=== PATIENT | female | born 1955 | race American Indian/Alaskan Native ===

== ENCOUNTER 2017-09-27 17:09 | Emergency (ER) | payer OTHER ==
[~2017-09-27] VITALS: Ht 157.5 cm; Wt 54.9 kg
[2017-09-27] MEDS ORDERED: BACTRIM DS TAB1 EACH PO (18:46)
[2017-09-27] MEDS ORDERED: ONDANSETRON ODT8 MG PO (18:46)
== END 2017-09-27 19:08 | disposition home or self-care (01) ==
LOC: ED 17:09
DX: N39.0 Urinary tract infection, site not specified (principal); F17.200 Nicotine dependence, unspecified, uncomplicated; Z88.0 Allergy status to penicillin
CPT/HCPCS: 80053; 81001; 82150; 83690; 85025; 87077; 87088; 87186; 96374; 96375; 99283; J2405; J7030

== ENCOUNTER 2017-12-01 09:39 | Observation (INO) | payer OTHER ==
[~2017-12-01] VITALS: Ht 154.9 cm; Wt 55.1 kg
[~2017-12-01 09:39] MED LIST: BACTRIM DS TAB1 EACH PO; ONDANSETRON ODT8 MG PO
[2017-12-01] MEDS ORDERED: ASPIRIN325 MG PO (12:03)
--- NOTE | 2017-12-01 12:30 | NUR ---
PT RECEIVED FROM ED. ADMISSION INTAKE COMPLETED. PT RATING PAIN 7/10, REQUESTING PAIN MEDICATION, NO MEDICATION AVAILABLE, DR. HAYES CALLED, TELEPHONE ORDER FOR DILAUDID 0.3-1.5 MG IV Q2H PRN FOR PAIN, ZOFRAN 8 MG IV Q6H PRN FOR NAUSEA, AND PROMETHAZINE 12.5 MG IV Q6H PRN. IV FLUIDS INFUSING LR AT 125 ML/HR. PT ON ROOM AIR, LUNG SOUNDS CLEAR, DENIES SOB. BOWEL TONES ACTIVE, DENIES NAUSEA. CMS INATCT, WITHOUT EDEMA. SKIN GROSSLY INTACT. DISCUSSED PLAN OF CARE. PT DENIES OTHER NEEDS AT THIS TIME.
--- NOTE | 2017-12-01 16:38 | NUR ---
PT ASSISTED TO BATHROOM AND BACK TO BED. SBA. PT VOIDING WITHOUT DIFFICULTY.
--- NOTE | 2017-12-01 18:04 | NUR ---
PT RECEIVED FROM ED FOR CHOLECYSTITIS. PT ON ROOM AIR, LUNG SOUNDS CLEAR. D5LR AT 100 ML, IV FLAGYL AND LEVAQUIN. PT WITH PAIN TO RUQ, IV DILAUDID GIVEN X1. SBA TO BATHROOM, VOIDING CONCENTRATED URINE. CLEAR LIQUID DIET, NPO AT MIDNIGHT FOR SURGERY TOMORROW.
--- NOTE | 2017-12-01 18:33 | NUR ---
AROUND 175 THE PATIENT ASKED FOR A WARM BLANKET GOT IT FOR HER ALSO HER GUEST ASKED FOR A CUP OF COFFEE.
--- NOTE | 2017-12-01 20:10 | NUR ---
recieved bedside report from day shift rn. pt in bed with at bedside. respirations are equal and nonlabored. pt reports pain of 6/10 in the RUQ. d5lr infusing. call light within reach. prn pain medication given. no other needs at this time.
--- NOTE | 2017-12-01 20:24 | NUR ---
HELPED PT TO THE BATHROOM AND BACK TO BED. BEDSIDE TABLE AND CALL LIGHT WITHIN REACH.
--- NOTE | 2017-12-01 21:04 | NUR ---
VITALS AND I&OS DONE AND CHARTED. FRESH ICE WATER GIVEN. BEDSIDE TABLE AND CALL LIGHT WITHIN REACH. PT NEEDS NOTHING ELSE AT THIS TIME.
--- NOTE | 2017-12-01 22:23 | EKG ---
[facility] [address] [facility] [place] [address] Signed Normal sinus rhythm Prolonged QT Abnormal ECG No previous ECGs available Confirmed by CHARBEL HENDRICKS MD ([id number]) on 12/01/2017 10:23:37 PM Electronically Signed By: CHARBEL HENDRICKS MD 12/01/17 2223 PATIENT NAME: JERMAINE LANZA Electrocardiogram DATE OF : 51 PHYSICIAN: CHARBEL HENDRICKS MD REPORT #: [id number] REPORT IS CONFIDENTIAL AND NOT TO BE RELEASED WITHOUT AUTHORIZATION
--- NOTE | 2017-12-02 | NUR ---
PT DIET WAS CHANGED TO NPO.
--- NOTE | 2017-12-02 01:20 | NUR ---
PT REPORTED PAIN 7/10 IN ABDOMEN. 1MG DILAUDID ADMINISTERED. CERTIFIED EXECUTIVE CHEF REPORTED TEMP ON 99.7 ENCOURAGED IS USE. RECHECKED TEMP WAS 98.5. PT RESTING IN BED NOW WITH EYES CLOSED. ASSESSMENT COMPLETED. PT HAS CRACKLES IN BASES OF LUNGS. HEART SOUNDS NORMAL. CMS INTACT. BOWEL TONES ACTIVE. CALL LIGHT WITHIN REACH. PT IS STILL NPO AT THIS TIME.
--- NOTE | 2017-12-02 02:59 | NUR ---
HELPED PT TO THE BATHROOM AND BACK TO BED. HOOKED UP HER SCD'S BEDSIDE TABLE AND CALL LIGHT WITHIN REACH. PT NEEDS NOTHING ELSE AT THIS TIME.
--- NOTE | 2017-12-02 06:07 | NUR ---
PT SLEPT THROUGHOUT THE NIGHT. 1MG DILAUDID GIVEN AT 0115. LUNGS DIM IN BASES. D5LR INFUSING. LR WITH STRAIGHT TUBING HANGING FOR SURGERY. FLAGYL. SBA. NPO SINCE MIDNIGHT. CONCENT IN CHART, H&P IN CHART. RAC IV FLUSHES WELL. SCD'S IN PLACE.
--- NOTE | 2017-12-02 06:14 | NUR ---
DENG ALEXIS COMPLETED. PT REPORTS TOLERABLE PAIN AT THIS TIME. CONSENT SIGNED. CALL LIGHT WITHIN REACH. WARM BLANMET PROVIDED FOR COMFORT.
--- NOTE | 2017-12-02 07:30 | NUR ---
REPORT RECEIVED THIS AM FROM JULIO MACHUCA. PATIENT IS RESTING IN BED WITH EYES CLOSED. PATIENT DENIES ANY QUESTIONS OR CONCERNS.
--- NOTE | 2017-12-02 08:18 | NUR ---
PATIENT READY FOR SURGERY, STRAIT TUBING HUNG AND ANTIBIOTIC HUNG.
--- NOTE | 2017-12-02 10:44 | NUR ---
PT IS STILL IN SURGERY WILL DO VITALS UPON RETURN.
--- NOTE | 2017-12-02 11:30 | NUR ---
PATIENT BACK FROM SURGERY AT THIS TIME ON RA, PULSE OX PLACED ON THE PATIENT AT THIS TIME. DRESSINGS TO ABDOMEN ARE CDI WITH GAUZE AND SILK TAPE. PATIENT DENIES ANY PAIN OR SOB AT THIS TIME. SHE WAS ABLE TO MOVE HERSELF FROM THE STRETCHER TO THE BED HERSELF WITHOUT ANY TROUBLE. PATIENT WATER FILLED UP FOR HER.
--- NOTE | 2017-12-02 11:35 | NUR ---
12/02/17 1135 HERNANDEZ,SHALA Osborne 1052: O2 MASK REMOVED. PATIENT ON ROOM AIR. 1127: PATIENT TRANSFERRED BACK TO ROOM 119. REPORT GIVEN TO MS SVEN.
--- NOTE | 2017-12-02 12:30 | NUR ---
PATIENT IS FEELING LIKE HER THROAT IS CLOSING AND SHE CAN'T BREATH. VITALS TAKEN, ALL WNL O2 SATURATIONS ON RA IS 98%. PATIENT HAD A SMALL CLEAR EMESIS AND SHE STATED THAT SHE FELT BETTER AND HAD NO TROUBLE WITH SWALLOWING OR TROUBLE WITH SHORTNESS OF BREATH. PATIENT IS ALERT AND ORIENTED AT THIS TIME.
--- NOTE | 2017-12-02 13:30 | NUR ---
ABDOMINAL DRESSINGS ARE CDI WITH GAUZE AND MEPILEX. OLD SHADOWING NOTED ON THE DRESSING AT THIS TIME. PATIENT HAS NO C/O PAIN CURRENTLY AND REMAIN ON RA WITH O2 SAT AT 98%. PATIENT HAS NO FUTHER C/O NAUSEA OR SWELLING OF THE NECK.
--- NOTE | 2017-12-02 14:15 | NUR ---
VITALS TAKEN, PATIENT DOING WELL TOLERATING WATER AT THIS TIME, IV ABX HUNG AND RUNNING. DRESSINGS TO ABDOMEN ARE CDI WITH GAUZE AND SILK TAPE.
--- NOTE | 2017-12-02 15:09 | NUR ---
PATIENT MOVED UP IN BED, TURNED TO HER RIGHT SIDE. SHE HAS NO C/O NAUSEA OR PAIN AT THIS TIME.
--- NOTE | 2017-12-02 15:33 | NUR ---
PATIENT'S ABDOMINAL PAIN 12/31 PATIENT GIVEN AN ICE PACK AND 1MG OF IV DILAUDID AT THIS TIME
[2017-12-02] MEDS ORDERED: [UNRECOGNIZED DRUG - OTHER] PO (16:08)
--- NOTE | 2017-12-02 16:09 | NUR ---
MED REC COMPLETED
--- NOTE | 2017-12-02 17:40 | NUR ---
PATIENT DOING WELL SITTING UP IN BED ONLY ABLE TO TOLERATE A COUPLE BITES OF JELLO AT A TIME CURRENTLY. SHE REMAINS ON RA WITH NO SOB. NO C/O NAUSEA AT THIS TIME. DRESSINGS TO ABDOMEN X4 ARE CDI.
--- NOTE | 2017-12-02 17:55 | NUR ---
PATIENT WENT TO SURGERY THIS AM AT 0800 AND HAD HER GALLBLADDER REMOVED LAPRASCOPICALLY. SHE HAS 4 LAPSITES TO HER ABDOMEN THAT HAVE OLD DRAINAGE PRESENT. THE DRESSINGS ARE GAUZE WITH SILK TAPE OVER THE TOP. PATIENT HAS HAD MINIMAL PAIN AND ONLY RECIEVED PAIN MEDICATION ONCE 1MG OF DILAUDID IV. SHE HAS BEEN ON RA WITH NO C/O SOB. SHE GETS UP TO THE BATHROOM WITH 1 PERSON ASSIST TO VOID. SHE IS NOT TOLERATING CLEAR LIQUIDS AT THIS TIME AND HAS ONLY TAKEN A COUPLE BITES OF JELLO.
--- NOTE | 2017-12-02 18:31 | NUR ---
PT IS RESTING IN BED WITH CALL LIGHT IN REACH. PT DID NOT NEED ANYTHING AT THE MOMENT
--- NOTE | 2017-12-02 19:55 | NUR ---
had 100cc bile colored emesis, medictaed with zofran 8mg IV
--- NOTE | 2017-12-02 21:42 | NUR ---
NO FURTHER C/O FEELING NAUSEATED, IN BED, OPENS EYES EASILY
--- NOTE | 2017-12-02 22:03 | NUR ---
PATIENT CALLED STATING READY TO LAY DOWN FROM DANGLING BY THE BED. SCDS BACK ON. CALL LIGHT WITHIN REACH. WARM BLANKET GIVEN.
--- NOTE | 2017-12-03 | NUR ---
RESTING, EYES CLOSED, NO RESP DISTRESS, NO FURTHER C/O ABD PAIN. IN BED. SCDS IN PLACE, IVF INFUSING W/O PROBLEMS
--- NOTE | 2017-12-03 02:42 | NUR ---
MEDICATED WITH 1MG IV DIALAUDID 12/31 ABD PAIN, NO FURTHER C/O N/V
--- NOTE | 2017-12-03 04:24 | NUR ---
RESTING, EYES CLOSED, NO C/O PAIN, N/V OR PAIN. IVF INFUSING W/O PROBLEMS, ABD DRESSING CDI. SCDS IN PLACE
--- NOTE | 2017-12-03 06:09 | NUR ---
MEDICATED WITH ZOFRAM 8MG IV AT THIS TIME, C/O DRY HEAVING, WAS MEDICATED X1 EARLIER TOO WITH GOOD RESULTS. PT HAS 100CC BILE COLORED EMESIS EARLIER AT BEGINING OF SHIFT. HAS NET BEEN ABLE TO TOLERATED JELLO OR JUICES. TOLERATING VERY SMALL SIPS OF WATE, ICE CHIPS GIVEN AT THIS TIME, TOLERATING OK SO FAR. ABD DRESSING LAP SITES CDI. STATES PASSING GAS. NO BM. GETS UP TO BRP WITH ONE PERSON ASSIST, VOIDING QS. IVF INFUSING W/O PROBLEMS, NO C/O ADVERSE REACTION TO ABX. MEDICATED X1 WITH DILAUDID 1MG EARLIER PER ABD PAIN WITH GOOD PAIN RELIEF. CURRENTLY IN BED, EYES CLOSED, CONT PULSE OX DC'D, SATS 99% ROOM AIR. NO C/O SOB WITH EXERTION OR STATED
--- NOTE | 2017-12-03 06:47 | NUR ---
up to brp, voided dark yellow urine, QSm . Back to bed, tolerated well, one person assist, no c/o n/v or pain
--- NOTE | 2017-12-03 07:29 | OR ---
[facility] [address] [place], [place] [address] Signed DATE OF OPERATION: 12/02/2017 SURGEON: Sam Hayes MD PREOPERATIVE DIAGNOSIS: [id number] cholecystitis and cholelithiasis. POSTOPERATIVE DIAGNOSIS: Kgxgy-fj-jwraswz cholecystitis and cholelithiasis. PROCEDURE: Laparoscopic cholecystectomy with intraoperative cholangiogram (prolonged and difficult at 1 hour 25 minutes). ESTIMATED BLOOD LOSS: 200 mL. FINDINGS: The intraoperative cholangiogram was unremarkable. Nat had tremendous inflammation of the entire gallbladder and the triangle of Calot. The gallbladder wall was quite thickened. She had a 5 cm oval-shaped stone in the gallbladder along with a smaller 1.5 cm stone and the smaller 8 mm stone. The dissection was quite difficult. We had an extra nurse scrub in and we had to add another trocar with our fan retractor in order to hold the duodenum and fat down out of the way. The entire case took 1 hour and 25 minutes, which is well over 35 or 40 minutes longer than usual. In this way, the procedure was prolonged and difficult. INDICATIONS: Nat is a 62-year-old female, who was having right upper quadrant abdominal pain with nausea. She came to the emergency room for evaluation. Her white count was borderline at 9.6 with neutrophils 82. Her liver function tests were fine with a total bilirubin was up a little bit at 2.4. Amylase and lipase were fine. An ultrasound showed a 5 cm gallstone with a 7 mm thickened gallbladder wall and a positive Boss sign. Consequently, I was asked to admit her as a general surgeon on-call. She was admitted, hydrated and started on antibiotics and pain control. I had met with Nat and her family and reviewed the above findings. I have already removed the gallbladder from several of her own family members. We also reviewed laparoscopic versus open cholecystectomy. She understands there is risk including, but not limited to, bleeding, infection, scarring, change in contour of the skin, damage to bowel, damage to main bile duct, incisional hernias, and other unforeseen comorbidities. She had expressed Electronically Signed By: SAM HAYES MD 12/03/17 0729 PATIENT NAME: NAT LANZA OPERATIVE REPORT DATE OF : 51 REPORT #: [id number] PHYSICIAN: SAM HAYES MD PCP: ISABEL DAVALOS MD REPORT IS CONFIDENTIAL AND NOT TO BE RELEASED WITHOUT AUTHORIZATION [facility] [address] [place] [id number] Signed understanding and wished to proceed. PROCEDURE NOTE: Nat was taken into the operating room and placed in the supine position under general endotracheal tube anesthesia. She was given preoperative antibiotics along with subcutaneous heparin. She was then prepped and draped in the usual sterile fashion. All trocars were placed in usual positions under direct visualization of the camera without difficulty. The findings were as above. It took very slow meticulous dissection to free up the triangle of Calot along the cystic artery. Two clips have been placed on the cystic artery and it was divided. We introduced intraoperative cholangiocatheter into the cystic duct and thankfully that was unremarkable. The cystic duct stump was secured with a PDS Endoloop along with a clip to sean its location. We did introduce a second fan retractor along with a second nurse in order to help dissect out the inferior portion of the gallbladder. I then took very slow meticulous dissection along the gallbladder fossa in order to remove the gallbladder from the fossa. Nevertheless, that surface was fairly raw and therefore it oozed a bit. She probably lost about 200 mL of blood. After this, the gallbladder was placed into an EndoCatch bag. The right upper quadrant was irrigated and suctioned out until clear. We then used our laparoscopic suturing device to pass 0 Vicryl suture on either side of the fascia of the subxiphoid in the mid epigastric trocar sites to close them primarily. The gas was then allowed to escape and all the remaining trocars were removed. We had to double the fascial defect at the umbilicus in order to remove the gallbladder without large stone. We then used multiple interrupted [id number] and simple 0 Vicryl sutures to close the fascia just below the umbilicus. Local anesthetic was copiously injected into all trocar sites. Each trocar site was irrigated and suctioned out until clear. The skin and dermis of each trocar site were closed with interrupted 3-0 subcuticular Monocryl sutures. Dry gauze and tape were applied to all incisions. Nat was awakened from her anesthesia, extubated in the OR, and taken to recovery room in stable condition. Sam Hayes MD ALB/MODL /[id number] cc: Sam Hayes MD Electronically Signed By: SAM HAYES MD 12/03/17 0729 PATIENT NAME: NAT LANZA OPERATIVE REPORT DATE OF : 51 REPORT #: [id number] PHYSICIAN: SAM HAYES MD PCP: ISABEL DAVALOS MD REPORT IS CONFIDENTIAL AND NOT TO BE RELEASED WITHOUT AUTHORIZATION [facility] [address] [place], [place] [address] Signed Isabel Davalos MD Copies: SAM HAYES MD, REX MD ~ Electronically Signed By: SAM HAYES MD 12/03/17 0729 PATIENT NAME: NAT LANZA OPERATIVE REPORT DATE OF : 51 REPORT #: [id number] PHYSICIAN: SAM HAYES MD PCP: ISABEL DAVALOS MD REPORT IS CONFIDENTIAL AND NOT TO BE RELEASED WITHOUT AUTHORIZATION
--- NOTE | 2017-12-03 08:31 | NUR ---
pt reports nausea. assisted up to bathroom to void. will ambulate patient as she c/o gas pain.
--- NOTE | 2017-12-03 09:22 | NUR ---
PT UP IN LUNDY WALKING WITH KAREN HUBBARD. DENIES SOB/DIZZINESS/NAUSEA. APPEARS TO BE TOLERATING WELL.
--- NOTE | 2017-12-03 09:33 | NUR ---
pt ambulated halls with Calista JONES. up to bathroom with assistance. able to tolerate a few bites of applesauce.
--- NOTE | 2017-12-03 10:44 | NUR ---
GOT PATIENT A HOT PACK ALSO HER FAMILY TWO CUPS OF COFFEE THIS MORNING.
--- NOTE | 2017-12-03 13:11 | NUR ---
AMBUALTED PATIENT SHORT DISTANCE IN LUNDY. SBA. NORCO GIVEN AT 1230 FOR PAIN. VISITOR AT BEDSIDE.
--- NOTE | 2017-12-03 13:42 | NUR ---
DRESSINGS REMOVED ON ABDOMEN. STAB WOUND SIDES WELL APPROXIMATED AND HEALING WELL.
--- NOTE | 2017-12-03 18:36 | NUR ---
PATIENT AMBULATED HALLS X2 TODAY. LAP SITES X5 OPEN TO AIR, DRESSINGS REMOVED TODAY. NAUSEA WITH MEALS. POOR APPETITE. PHENERGAN GIVEN. RENAY X2. NAPHOS RIDER TODAY. D5LR @ 75. NO BM.
--- NOTE | 2017-12-03 19:57 | NUR ---
cOOP WITH ASSESSMENT, NO C/O PAIN OR N/V. tOLERATED 25% OF DINNER. WATCHING TV
--- NOTE | 2017-12-03 22:58 | NUR ---
medicated with 1 norco 5/10 abd pain
--- NOTE | 2017-12-03 23:40 | NUR ---
ASSISTED PATIENT TO THE BATHROOM AND BACK TO BED. SCDS BACK ON. CALL LIGHT WITHIN REACH. PATIENT STATED SHE IS CONSTIPATED. SVEN CASILLAS IS AWARE.
--- NOTE | 2017-12-03 23:50 | NUR ---
RESTING, EYES CLOSED, NO RESP DISTRESS, PAIN MED EFFECTIVE, NO FURTHER C/O ABD PAIN OR N/V. TOLERATING SIPS OF WATER AND JUICE. SCDS INPLACE, TURN SELF IN BED IVF INFUSING W/O PROBLEMS
--- NOTE | 2017-12-04 02:07 | NUR ---
RESTING PEACEFULLY, NO RESP DISTRESS. SCDS INPLACE, IVF-FLAGYL IV ABX INFUSING W/O PROBLEMS, NO FURTHER C/O PAIN OR N/V
--- NOTE | 2017-12-04 02:58 | NUR ---
PT CALLED TO USE BATHROOM. MIMINAL ASSISTANCE OUT OF BED, SBA AMB TO BATHROOM. VOIDED WITHOUT DIFFICULTY. ONCE IN BED, STATED "THAT WAS BETTER THIS TIME", "GETTING INTO BED" CALL LIGHT WITHIN REACH, NO OTHER NEEDS.
--- NOTE | 2017-12-04 05:23 | NUR ---
Mwsicated with 1 [place] c/o 12/31 abd pain. Up to brp, voided, back to bed, tolerating fluids well, no c/o b/v or dry heaving
--- NOTE | 2017-12-04 05:48 | NUR ---
pt has been able to tolerated apple sauce, and juices better, no c/o n/v or dry heaving this shift. No emesis. Continues to c/.o abd pain and has received 1 norco X2 doses with good pain control. Abd tender, 4 lap sites closed with dermabond, cdi. passing gas, no bm since 11/30. nurse initated orders started. Gets up to brp with one standby assist. Tolerating well. Currently in bed resting
--- NOTE | 2017-12-04 06:52 | NUR ---
DR HAYES NOTIFIED OF ABNORMAL LAB LEVELS OF PHOSPHOROUS 1.7, MAGNESIUM 1.4. DR WILL REVIEW LABS
--- NOTE | 2017-12-04 08:40 | NUR ---
PATIENT SITTING UP IN BED EATING BREAKFAST. SHAMPOO CAP ON PATIENT. PATIENT WILL CALL WHEN SHE'S FINISHED WITH BREAKFAST TO GET UP TO BATHROOM AND WASH UP THEN TO THE CHAIR. CALL BUTTON IN REACH. PATIENT RATES HER PAIN A 4 OUT OF 10. PATIENT STATES SHE CAN TOLARATE HER PAIN RIGHT NOW AND REFUSED ANYTHING FOR PAIN. NO OTHER NEEDS AT THIS TIME.
[2017-12-04] MEDS ORDERED: MIRALAX17 GM PO (09:05)
[2017-12-04] MEDS ORDERED: NORCO 5-325 TA1 EACH PO (09:05)
--- NOTE | 2017-12-04 09:36 | NUR ---
iv abx due. PHARMACY CONSULTED. PHARMACIST STATES TO STOP POTASSIUM PHOSPHATE AND GIVEN ABX, THEN RESTART POTASSIUM PHOSPHATE. MEDICATIONS GIVEN ORDERED. PT WORKING WITH STEAM TUNNEL FEEDER FOR MORNING CARE AND HAIR WASH. PAIN MEDICATION GIVEN TO ASSIST WITH AMBULATION. PT STATES SHE HAS NO ADDITIONAL REQUESTS OR COMPLAINTS AT THIS TIME. CALL LIGHT WITHIN REACH.
--- NOTE | 2017-12-04 10:24 | NUR ---
PATIENT UP TO BATHROOM AND HAD A SMALL FORMED BM. PATIENT BACK TO CHAIR WITH STAND BY ASSIST. PATIENT STATES THAT SHE FEELS BETTER THEN YESTERDAY. PATIENT'S HANDS AND FACE WASHED. SHAMPOO CAP USED. NO OTHER NEEDS AT THIS TIME. CALL BUTTON IN REACH. WARM BLANKET GIVEN.
--- NOTE | 2017-12-04 11:29 | NUR ---
FOCUSSED ASSESSMENT DUE. THIS RN TO BEDSIE. ASSESSMENT DONE. PT DENIES PAIN AND NAUSEA. PT DRIFTS OFF TO SLEEP WHILE THIS RN IS CHARTING, RR = 16BPM. CALL LIGHT WITHIN REACH. BED RAILS UP.
--- NOTE | 2017-12-04 12:33 | NUR ---
PT RESTING IN BED-ALERT, ORIENTTED AND SUPPORTED BY HER . SHE WAS PLEASANT, SEEMED COMFORTABLE WITH MY PRESENCE AND STATED SHE HOPES TO BE DC'D TODAY. PT MENTIONED RN HAD GONE OVER DC INSTRUCTIONS, PT REQUESTED PRAYER, WILL FOLLOW NEEDED
--- NOTE | 2017-12-04 13:48 | NUR ---
PT CALL LIGHT ON. PT REQUESTS PAIN MEDICATION AFTER HER WALK FOR 4/10 PAIN. GIVEN REQUESTS. PT BEGINS REPORTING NAUSEA. ZOFRAN GIVEN, FLUSHED BEFORE AND AFTER INFUSION OF ZOFRAN. K-PHOS RESTARTED. PT STATES SHE HAS NO ADDITIONAL REQUESTS OR COPMLAINTS. BED RAILS UP. CALL LIGHT WITHIN REACH.
--- NOTE | 2017-12-04 14:10 | NUR ---
PATIENT RESTING IN BED TALKING TO PHARMACIST [place]. THIS POWER CHECKER GAVE THE PATIENT COOL WASH CLOTH. PATIENTS HER PAIN A 3 OUT OF 10. PATIENT STATES THAT SHE FEELS BETTER AFTER HER RN GAVE HER MEDICATION. CALL BUTTON IN REACH NO OTHER NEEDS AT THIS TIME.
--- NOTE | 2017-12-04 17:10 | NUR ---
PT STATES SHE IS READY TO GO HOME. PT HAS CHANGED INTO HER OWN [facility]OT[facility]. PIV DC'D BY [employer] STUDENTS. DISCHARGE INSTRUCTIONS REVIWED WITH PT. PT VERBALIZES UNDERSTANDING OF INSTRUCTIONS AND STATES HER QUESTIONS HAVE ALL BEEN ANSWERED. PTS FAMILY ARRIVED TO PICK PT UP. VITALS TAKEN. PT WHEELED FROM UNIT BY [employer].
--- NOTE | 2017-12-04 19:20 | CONS ---
[facility] [address] [place], [place] [address] Signed DATE OF CONSULTATION: 12/01/2017 REFERRING PHYSICIAN: Enrrique Gross DO CHIEF COMPLAINT: Right upper quadrant abdominal pain. HISTORY OF PRESENT ILLNESS: Nat is a 62-year-old female who generally is pretty healthy and she woke up this morning and had right upper quadrant abdominal pain with nausea. She came to emergency room for evaluation. In the emergency room, she was tender in the right upper quadrant with an elevated total bilirubin. Ultrasound was performed, and it looks like there was a 5 cm stone in the gallbladder with 7 mm gallbladder wall thickening, and a positive Boss sign. Consequently, I was asked to admit her as a general surgeon on-call. In the meantime, she has received some Dilaudid and said she is feeling better. PAST MEDICAL HISTORY: Headaches and urinary tract infections. PAST SURGICAL HISTORY: . SOCIAL HISTORY: She smokes a little bit, but does not drink. She lives with her partner. She no longer drives. She has 3 children. Her daughter is Brittni Melissa at [phone][address] Dr. Isabel Davalos is the primary care provider. They prefer the [facility]. FAMILY HISTORY: She is not sure about her dad. Her mom had TB and then of some type of stomach infection. REVIEW OF SYSTEMS: Nat had 10 systems reviewed. She seems to be very healthy otherwise. ALLERGIES: Penicillin. MEDICATIONS: 1. Aspirin p.r.n. 2. Bactrim p.r.n. PHYSICAL EXAMINATION: Electronically Signed By: SAM HAYES MD 12/04/17 1920 PATIENT NAME: NAT LANZA CONSULTATION DATE OF : 51 REPORT #: [id number] PHYSICIAN: SAM HAYES MD PCP: ISABEL DAVALOS MD REPORT IS CONFIDENTIAL AND NOT TO BE RELEASED WITHOUT AUTHORIZATION [facility] [address] [place], [place] [address] Signed VITAL SIGNS: Her blood pressure is 147/65, heart rate 82, respiratory rate 16, temperature is 98.7. She is 5 foot 1 inch, 55 kilograms. GENERAL: Nat is a 62-year-old female, who was lying supine in her hospital bed. Her lifelong partner is in the room along with her daughter, Brittni. She does not appear systemically ill or toxic. LUNGS: Clear to auscultation bilaterally. HEART: Regular rate and rhythm. ABDOMEN: Soft and flat, but it is tender in the right upper quadrant. LABS: White blood cell count 9.6, hemoglobin 16, neutrophils 82, BUN 19, creatinine 1.0, total bilirubin is 2.4, AST 12, ALT 8, alkaline phosphatase 83, albumin 4.1, amylase normal at 41 and lipase 5. RADIOGRAPHIC STUDIES: Ultrasound of right upper quadrant demonstrates a 5 cm stone in the gallbladder wall as thick as 7 mm with a positive Boss sign. Chest x-ray was unremarkable. ASSESSMENT AND PLAN: Nat is a 62-year-old female, who presents with cholecystitis, cholelithiasis. She has been admitted, given IV fluids. We will start some antibiotics shortly. There is another case going this afternoon, which would push us into the evening. I think rather than do that on the Monday evening, we are going to let her have some liquids today. We are going to hydrate her, get her antibiotics started, and we will schedule her first thing in the morning. I have reviewed the location and function of the gallbladder with Nat and her family. I have done gallbladder surgery for her daughter Brittni already. We have reviewed laparoscopic versus open cholecystectomy. They do understand the expected intraoperative, and postoperative course. There is risk including, but not limited to bleeding, infection, scarring, change in contour of the skin, as well as damage to the bowel, damage to the main bile duct, and incisional hernias. She has expressed understanding, and wished to proceed as above. Sam Hayes MD ALB/MODL /[id number] cc: Isabel Davalos MD Electronically Signed By: SAM HAYES MD 12/04/17 192 PATIENT NAME: NAT LANZA CONSULTATION DATE OF : 51 REPORT #: [id number] PHYSICIAN: SAM HAYES MD PCP: ISABEL DAVALOS MD REPORT IS CONFIDENTIAL AND NOT TO BE RELEASED WITHOUT AUTHORIZATION [address] [address] Signed Copies: ISABEL DAVALOS MD ~ Electronically Signed By: SAM HAYES MD 12/04/17 1920 PATIENT NAME: NAT LANZA CONSULTATION DATE OF : 51 REPORT #: [id number] PHYSICIAN: SAM HAYES MD PCP: ISABEL DAVALOS MD REPORT IS CONFIDENTIAL AND NOT TO BE RELEASED WITHOUT AUTHORIZATION
--- NOTE | 2017-12-04 19:20 | DS ---
[facility] [address], [place] [address] Signed ADMISSION DATE: 12/01/2017 DISCHARGE DATE: 12/04/2017 FINAL DIAGNOSES: Severe cholecystitis and cholelithiasis. PROCEDURES: 1. Laparoscopic cholecystectomy with intraoperative cholangiogram (prolonged and difficult). 2. Ultrasound. HISTORY OF PRESENT ILLNESS: Nat is a 62-year-old female, who came to the emergency room with right upper quadrant abdominal pain and nausea. White count was normal with a total bilirubin slightly elevated. She was tender in the right upper quadrant. Ultrasound revealed a gallbladder with a thickened wall at 7 mm and a 5 mm gallstone with a positive Boss sign. She was therefore admitted to the hospital and started on antibiotics. I took her to the operating room later the next day for prolonged and difficult laparoscopic cholecystectomy with intraoperative cholangiogram. The intraoperative cholangiogram was unremarkable. She had some raw surface on the gallbladder bed and her hemoglobin did drop from 16 down to 12.8. She was little tired and weak the next days, so we kept her in the hospital. Her nausea continued to improve. By the 2nd morning, then she was much improved. We do not have any laboratory work back at this time. The nausea is gone. She has been eating. She actually took her pain pills and said it went fine. She said she feels strong enough she can go home with her family. DISCHARGE PLANS AND MEDICATIONS: Nat is going to be discharged to home with a prescription for [place] 5/325 one to two tablets p.o. q.4-6 hours p.r.n. pain, we will dispense 45 tablets with no refills. I wrote down MiraLAX so she can buy it [id number] for constipation. She can resume any chronic medications that she has. She is welcome to take diet as tolerated. She can perform her activities of daily living including walking up and down stairs and showering bathing as usual. We will have her back in the office in about 7 to 10 days for review. In addition, she wants to talk about having a colonoscopy here in the next month or two. Sam Hayes MD Electronically Signed By: SAM HAYES MD 12/04/17 1920 PATIENT NAME: NAT LANZA DISCHARGE SUMMARY DATE OF : 51 REPORT #: [id number] PHYSICIAN: SAM HAYES MD PCP: ISABEL SRIVASTAVA MD REPORT IS CONFIDENTIAL AND NOT TO BE RELEASED WITHOUT AUTHORIZATION [facility] [address], [place] [address] Signed ALB/MODL /[id number] cc: MD Sam Herbert MD Copies: ISABEL SRIVASTAVA MD, ANDREW L MD ~ Electronically Signed By: SAM HAYES MD 12/04/17 1920 PATIENT NAME: NAT LANZA DISCHARGE SUMMARY DATE OF : 51 REPORT #: [id number] PHYSICIAN: SAM HAYES MD PCP: ISABEL SRIVASTAVA MD REPORT IS CONFIDENTIAL AND NOT TO BE RELEASED WITHOUT AUTHORIZATION
== END 2017-12-04 17:15 | disposition home or self-care (01) ==
LOC: ED 09:39 → MS 09:41
PROVIDERS: ADMIT Colon & Rectal Surgery
PROC: BF101ZZ Fluoroscopy of Bile Ducts using Low Osmolar Contrast (ICD-10-PCS; 2017-12-02)
PROC: 0FT44ZZ Resection of Gallbladder, Percutaneous Endoscopic Approach (ICD-10-PCS; principal; 2017-12-02 09:00)
DX: K80.12 Calculus of gallbladder with acute and chronic cholecystitis without obstruction (principal); F17.210 Nicotine dependence, cigarettes, uncomplicated; E83.39 Other disorders of phosphorus metabolism; Z87.440 Personal history of urinary (tract) infections; Z88.0 Allergy status to penicillin; Z79.2 Long term (current) use of antibiotics; Z79.82 Long term (current) use of aspirin; Z86.19 Personal history of other infectious and parasitic diseases
CPT/HCPCS: 00790; 36415; 71046; 74300; 76705; 80048; 80053; 82150; 83690; 83735; 84100; 85025; 88304; 93005; 93010; 94762; 96361; 96365; 96366; 96367; 96368; 96372; 96374; 96375; 96376; 99285; G0378; J0131; J1100; J1170; J1644; J1885; J1956; J2250; J2405; J2550; J2704; J3010; J3475; J7030; J7040; J7120; Q9967

== ENCOUNTER 2020-09-05 18:51 | Emergency (ER) | payer MEDICARE, OTHER ==
[~2020-09-05] VITALS: Ht 154.9 cm; Wt 61.2 kg
[~2020-09-05 18:51] MED LIST changes: +ASPIRIN325 MG PO; +MIRALAX17 GM PO; +NORCO 5-325 TA1 EACH PO; +[UNRECOGNIZED DRUG - OTHER] PO
[2020-09-05] MEDS ORDERED: CLINDAMYCIN HC300 MG PO (19:49)
== END 2020-09-05 20:03 | disposition home or self-care (01) ==
LOC: ED 18:51
DX: K04.7 Periapical abscess without sinus (principal); F17.200 Nicotine dependence, unspecified, uncomplicated; Z88.0 Allergy status to penicillin
CPT/HCPCS: 99282